=== PATIENT | male | born 1970 | race Caucasian/White ===

== ENCOUNTER 2019-05-13 15:28 | Outpatient (CLI) | payer BC, SELFPAY ==
--- NOTE | ~2019-05-13 | XR_ITS ---
XR lumbar spine 2-3V DATE: 05/13/2019 15:51 INDICATION: Low back pain for one week. History of bulging disc. TECHNIQUE: AP, lateral, coned lateral lumbosacral views COMPARISON: None FINDINGS: Diffuse idiopathic skeletal hyperostosis of the lower thoracic and upper lumbar spine. Moderate degenerative disc disease at L1-2 Moderately severe degenerative disc disease and grade 1 anterolisthesis at L4-5. Otherwise no fracture or bone destruction is detected. The lumbar pedicles are intact. The sacroiliac joints appear normal. IMPRESSION: Diffuse idiopathic skeletal hyperostosis of the thoracolumbar spine Moderate degenerative disc disease at L1-L4 5 Grade 1 anterolisthesis at L4-5 Reviewed, dictated and finalized at location B. [facility]
== END 2019-05-13 15:29 | disposition home or self-care (01) ==
PROVIDERS: PCP Family Medicine; Visit Provider Family Medicine
DX: M51.36 Other intervertebral disc degeneration, lumbar region (principal); M48.15 Ankylosing hyperostosis [Forestier], thoracolumbar region
CPT/HCPCS: 72100

== ENCOUNTER 2020-02-19 06:39 | Outpatient (NON) | payer BC, SELFPAY ==
[2020-02-19 23:55] LABS: SARS-CoV-2 RNA PCR Negative
== END 2020-02-19 06:40 ==
LOC: ANHCOVIDDT 07:13
PROVIDERS: Visit Provider Family Medicine
DX: Z20.828 Contact with and (suspected) exposure to other viral communicable diseases (principal); R05 Cough
CPT/HCPCS: 87635; C9803; U0003

== ENCOUNTER → 2021-03-23 00:58 | Outpatient (CLI) | payer BC, SELFPAY ==
[2021-03-24 02:02] LABS: SARS-CoV-2 RNA PCR Negative
== END ==
PROVIDERS: PCP Nurse Practitioner Family; Visit Provider Internal Medicine Gastroenterology
DX: Z01.812 Encounter for preprocedural laboratory examination (principal); Z20.822 Contact with and (suspected) exposure to COVID-19
CPT/HCPCS: C9803; U0003; U0005

== ENCOUNTER 2021-03-26 00:41 | Day surgery (SDC) | payer BC, SELFPAY ==
[2021-03-17 13:48] VITALS: BMI 38.4
[2021-03-26 08:12] VITALS: BP 143/97; PULSE 108; RESP 18; TEMP 36.8; O2SAT 98; BMI 38.7
--- NOTE | 2021-03-26 08:38 | WPDANESEPPF ---
Anes - Initial Pre Proc Eval Procedure: Operation Date: 03/26/21 09:30 Proposed Procedures p Screening Colonoscopy - Federico Mcqueen MD Date/Time: 03/26/21 08:38 Surgeon: Federico Mcqueen MD Pre Op Diagnosis: neoplasm screening Patient Data Age: 51 Gender: M Height: 1.85 m Weight: 133.3 kg Last Vital Signs Temp 36.8 C 03/26/21 08:12 Pulse 108 H 03/26/21 08:12 Resp 18 03/26/21 08:12 BP 143/97 H 03/26/21 08:12 Pulse Ox 98 03/26/21 08:12 Allergies Allergy/AdvReac Type Severity Reaction Status Date / Time No Known Allergies Allergy Verified 03/26/21 08:19 Home Medications Medication Instructions Recorded Confirmed Type ascorbate calcium (vitamin C) 500 500 mg PO DAILY 05/13/19 03/26/21 History mg tablet calcium carbonate 600 mg calcium 600 mg PO DAILY 05/13/19 03/26/21 History (1,500 mg) tablet etanercept 50 mg/mL (1 mL) 50 mg SUB-Q WEEKLY 05/13/19 03/26/21 History subcutaneous syringe folic acid 1 mg tablet 1 mg PO DAILY 05/13/19 03/26/21 History gabapentin 300 mg capsule 1,200 mg PO DAILY cap 05/13/19 03/26/21 History leflunomide 20 mg tablet 20 mg PO DAILY 05/13/19 03/26/21 History magnesium 30 mg tablet 30 mg PO DAILY 05/13/19 03/26/21 History omega-3 fatty acids 1,000 mg 1,000 mg PO DAILY 05/13/19 03/26/21 History capsule vitamin B complex 1 tablet PO DAILY 05/13/19 03/26/21 History vitamin E acetate 134 mg (200 200 unit PO DAILY 05/13/19 03/26/21 History unit) capsule cholecalciferol (vitamin D3) 25 50 mcg PO DAILY tablet 10/16/19 03/26/21 History mcg (1,000 unit) tablet methotrexate sodium 2.5 mg tablet 25 mg PO WEEKLY tablet 10/16/19 03/26/21 History biotin 1 mg capsule 5,000 mg PO DAILY cap 01/18/21 03/26/21 History zinc acetate 50 mg (zinc) capsule 50 mg PO DAILY 01/18/21 03/26/21 History lisinopril 20 1 tablet PO DAILY #30 tablet 02/08/21 03/26/21 Rx mg-hydrochlorothiazide 25 mg tablet levothyroxine 150 mcg tablet 150 mcg PO DAILY #90 tablet 03/08/21 03/26/21 Rx Patient hx anesthesia problems: none Family hx anesthesia problems: none Results Review: All pre-operative results and documents have been reviewed as part of the pre-operative evaluation. [facility] Past Medical History Medical History Chronic neck and back pain Deviated nasal septum h/o DNS repair 2004 Dyslipidemia Essential (primary) hypertension History of renal stone Hypothyroidism (acquired) Pre-diabetes Rheumatoid arthritis Vitamin D deficiency Surgical History Surgical History History of bilateral carpal tunnel release 2016 History of cystoscopy (~11/2020) for renal stones - 2009 History of hemorrhoidectomy 2019 History of tonsillectomy Family History Family History Father Patient's father is Family history of coronary artery disease Grandparent Carcinoma of colon Other Diabetes mellitus Social History Social History Smoking packs per day: 2 Smoking cigarettes per day: 40.0 Years smoked: 15 Smoking pack-years: 30.00 Smoking status: Former smoker Tobacco type: cigarettes Smokeless tobacco user: chewing tobacco Second hand tobacco smoke exposure: No Smoking end date: 04/10/10 Alcohol intake: never Substance use: never Substance use type: does not use Living arrangements: with family Gender identity (if verbalized by the patient): Male Spiritual care concerns: No Anes - Eval Final PreProcedure Day of Procedure 03/26/21 08:38 Patient weight: obese Heart: regular rate and rhythm Lungs: clear to auscultation Airway: Mallampati scale class II Neurological: alert and oriented Last oral intake: >/= 8 hours ASA classification: III Emergent: no Anesthetic plan: proceed Anesthesia type and monitoring: ge
--- NOTE | 2021-03-26 08:46 | WPDGICN ---
Assessment and Plan Assessment and plan (1) Encounter for screening colonoscopy: Code(s): Z12.11 - Encounter for screening for malignant neoplasm of colon Status: Acute Assessment and Plan: Patient presents for screening colonoscopy. Appears to be at average risk for colon polyps. He does have a distant history of abdominal pain most suspicious for irritable bowel syndrome. High-fiber diet advised. Further recommendations may be given after colonoscopy. GI Consult Note Consult date/time: 03/26/21 08:46 HPI: Vamsi Patterson is a 51 year old male Presents for screening colonoscopy. Patient's current weight appetite and bowel movements are normal. He denies abdominal pain. He has had no bleeding. Family history is noncontributory. Patient reports he had left-sided abdominal pain several years ago that has resolved. his bowel habits have remained normal. Review of Systems Review of Systems: All systems reviewed & are unremarkable except as noted in HPI and below PMFSH Past Medical History Medical History Chronic neck and back pain Deviated nasal septum h/o DNS repair 2004 Dyslipidemia Essential (primary) hypertension History of renal stone Hypothyroidism (acquired) Pre-diabetes Rheumatoid arthritis Vitamin D deficiency Surgical History Surgical History History of bilateral carpal tunnel release 2017 History of cystoscopy (~11/2020) for renal stones - 2009 History of hemorrhoidectomy 2019 History of tonsillectomy Family History Family History Father Patient's father is Family history of coronary artery disease Grandparent Carcinoma of colon Other Diabetes mellitus Social History Social History Smoking packs per day: 2 Smoking cigarettes per day: 40.0 Years smoked: 15 Smoking pack-years: 30.00 Smoking status: Former smoker Tobacco type: cigarettes Smokeless tobacco user: chewing tobacco Second hand tobacco smoke exposure: No Smoking end date: 04/10/10 Alcohol intake: never Substance use: never Substance use type: does not use Living arrangements: with family Gender identity (if verbalized by the patient): Male Spiritual care concerns: No Meds Home Medications and Allergies Home Medications Medication Instructions Recorded Confirmed Type ascorbate calcium (vitamin C) 500 500 mg PO DAILY 05/13/19 03/26/21 History mg tablet calcium carbonate 600 mg calcium 600 mg PO DAILY 05/13/19 03/26/21 History (1,500 mg) tablet etanercept 50 mg/mL (1 mL) 50 mg SUB-Q WEEKLY 05/13/19 03/26/21 History subcutaneous syringe folic acid 1 mg tablet 1 mg PO DAILY 05/13/19 03/26/21 History gabapentin 300 mg capsule 1,200 mg PO DAILY cap 05/13/19 03/26/21 History leflunomide 20 mg tablet 20 mg PO DAILY 05/13/19 03/26/21 History magnesium 30 mg tablet 30 mg PO DAILY 05/13/19 03/26/21 History omega-3 fatty acids 1,000 mg 1,000 mg PO DAILY 05/13/19 03/26/21 History capsule vitamin B complex 1 tablet PO DAILY 05/13/19 03/26/21 History vitamin E acetate 134 mg (200 200 unit PO DAILY 05/13/19 03/26/21 History unit) capsule cholecalciferol (vitamin D3) 25 50 mcg PO DAILY tablet 10/16/19 03/26/21 History mcg (1,000 unit) tablet methotrexate sodium 2.5 mg tablet 25 mg PO WEEKLY tablet 10/16/19 03/26/21 History biotin 1 mg capsule 5,000 mg PO DAILY cap 01/18/21 03/26/21 History zinc acetate 50 mg (zinc) capsule 50 mg PO DAILY 01/18/21 03/26/21 History lisinopril 20 1 tablet PO DAILY #30 tablet 02/08/21 03/26/21 Rx mg-hydrochlorothiazide 25 mg tablet levothyroxine 150 mcg tablet 150 mcg PO DAILY #90 tablet 03/08/21 03/26/21 Rx Allergies Allergy/AdvReac Type Severity Reaction Status Date / Time No Known Allergies Aller
[2021-03-26] MEDS: LACTATED RINGERS 1,000 ML 150 ML IV CONT (08:52)
[2021-03-26] MEDS: SIMETHICONE ORAL SUSPENSION 20 MG/0.3 ML 30 ML BOTTLE 0.6 ML IRRIGATION (09:53)
[2021-03-26 10:00] VITALS: BP 128/91; PULSE 96; RESP 22; O2SAT 97
[2021-03-26 10:10] VITALS: BP 126/72; PULSE 92; RESP 21; O2SAT 98
[2021-03-26 10:20] VITALS: BP 126/73; PULSE 76; RESP 22; O2SAT 97
== END 2021-03-26 10:33 | disposition home or self-care (01) ==
PROVIDERS: PCP Family Medicine; Visit Provider Internal Medicine Gastroenterology
PROC: 0DJD8ZZ Inspection of Lower Intestinal Tract, Via Natural or Artificial Opening Endoscopic (ICD-10-PCS; CPT 45378; principal; 2021-03-26 09:30)
DX: Z12.11 Encounter for screening for malignant neoplasm of colon (principal); K57.30 Diverticulosis of large intestine without perforation or abscess without bleeding; K64.8 Other hemorrhoids; I10 Essential (primary) hypertension; E03.9 Hypothyroidism, unspecified; E78.5 Hyperlipidemia, unspecified; E55.9 Vitamin D deficiency, unspecified; M06.9 Rheumatoid arthritis, unspecified; F17.220 Nicotine dependence, chewing tobacco, uncomplicated; E66.9 Obesity, unspecified; Z68.38 Body mass index [BMI] 38.0-38.9, adult
CPT/HCPCS: 45378; J2704; J7120

== ENCOUNTER → 2023-06-02 07:58 | Outpatient (CLI) | payer BC, SELFPAY ==
--- NOTE | ~2023-06-02 | CT_ITS ---
EXAMINATION: CT BRAIN W/O DATE: 06/02/2023 08:27 INDICATION: Headache TECHNIQUE: Computed tomography (CT) of the head was performed without intravenous contrast. The dose- length product was 726.40 mGy-cm. Automated exposure control and iterative reconstruction technique w ere employed. COMPARISON: No prior studies for comparison. FINDINGS: Normal brain parenchymal volume for age. Normal guillory-white differentiation. No acute intrac ranial hemorrhage, infarction, mass or mass effect. No ventriculomegaly or midline shift. Midline sagittal images demonstrate a normal corpus callosum, c raniovertebral junction and sella turcica. Basilar cisterns are patent. There is intracranial atheros clerosis. There is mild mucosal thickening of the ethmoid and left frontal sinuses. Mastoids are pneumatized. N o depressed skull fractures. IMPRESSION: 1. No acute intracranial abnormality. 2: Mild sinus disease. Reviewed, dictated and finalized at location A. GER ASSURANCE
--- NOTE | ~2023-06-02 | US_ITS ---
US renal BI 06/02/2023 08:14 Procedure: Realtime transabdominal ultrasound of the kidneys and bladder. Indication: Personal history of urinary stone. Comparison: Ultrasound dated 12/31/2004 Findings: Renal echotexture is normal bilaterally without hydronephrosis, contour deforming mass or r enal calculus. There is interruption of the medullary component of the right kidney, suggesting dupli cation of the renal collecting system. The right kidney measures 12 cm and left kidney measures 12.9 cm. Bladder within normal limits. 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 Otherwise, unremarkable renal ultrasoun d. Reviewed, dictated and finalized at location A. PORT SUPPORT ASSOCIATE Impression: 1: Possible duplication of the right renal collecting system. Otherwise, unrema rkable renal ultrasound.
== END ==
PROVIDERS: PCP Family Medicine; Visit Provider Nurse Practitioner Family
DX: R51.9 Headache, unspecified (principal); N23 Unspecified renal colic; R35.0 Frequency of micturition; Z87.442 Personal history of urinary calculi
CPT/HCPCS: 70450; 76775

== ENCOUNTER 2024-12-23 16:22 | Outpatient (CLI) | payer BC, SELFPAY ==
--- OUTSIDE RECORDS SUMMARY | 2024-10-18 05:20 | XMS_ITS ---
Author Organization [facility] Address [address] [place], [place] [id number] Care Team Providers Care Practice Consultant Name Role Phone SEBASTIAN STONER, [facility] Primary Care Provider Unavailable Angelica Ramírez Unavailable [phone] Akosua Cagle Unavailable [phone] Encounters Encounter Location Date Provider Diagnosis [facility] [address], [address] [place], [place] [id number] 10/18/2024 Akosua Cagle PLAN OF TREATMENT Next Appt Details Provider Name:Angelica charles, 05/02/2025 10:40:00 AM, [address], [address], [place], [place], [id number],
--- OUTSIDE RECORDS SUMMARY | 2024-10-25 05:40 | XMS_ITS ---
Author Organization [facility] Address [address] [place], [place] [id number] Care Team Providers Care Insolvency Practitioner Name Role Phone [facility]BASTIAN STONER, [facility] Primary Care Provider Unavailable Angelica Ramírez Unavailable [phone] Akosua Cagle Unavailable [phone] ALLERGIES No Known Allergies RESULTS Component Value Reference Range Notes CYCLIC CITRULLINATED PEPTIDE (CCP) AB (IGG) Reviewed date:11/08/2024 09:03:23 AM Interpretation: Performing Lab:Mari FULLER-[id number] Judy [id number] Ayala Hendrix MD Notes/Report: NON-FASTING; NON-FASTING; NON-FASTING; NON-FASTING; NON-FAST CYCLIC CITRULLINATED PEPTIDE (CCP) AB (IGG) <16 Reference Range Negative: <20 Weak Positive: 20-39 Moderate Positive: 40-59 Strong Positive: >59 CREATININE Reviewed date:11/08/2024 09:03:23 AM Interpretation: Performing Lab:DYLLAN ChimerosDulce SalasCezal[address] Administration Lisa Alba [id number] Ayala Hendrix Notes/Report: NON-FASTING; NON-FASTING; NON-FASTING; NON-FASTING; NON-FAST CREATININE 0.81 0.70-1.30 mg/dL The above test was performed; however, the specimen was lipemic. EGFR 105 > OR = 60 mL/min/1.73m2 AST Reviewed date:11/08/2024 09:03:23 AM Interpretation: Performing Lab:[place] [address] Administration Lisa Alba [address] Notes/Report: NON-FASTING; NON-FASTING; NON-FASTING; NON-FASTING; NON-FAST AST 36 10-35 U/L ALT Reviewed date:11/08/2024 09:03:23 AM Interpretation: Performing Lab:[place] [address] Administration Lisa Alba [id number] [facility] Notes/Report: NON-FASTING; NON-FASTING; NON-FASTING; NON-FASTING; NON-FAST ALT 67 9-46 U/L SED RATE BY MODIFIED WESTERG JUNO Reviewed date:11/08/2024 09:03:23 AM Interpretation: Performing Lab:Mari MIJARES [facility] [place] [address] Administration Lisa Alba [address] Notes/Report: NON-FASTING; NON-FASTING; NON-FASTING; NON-FASTING; NON-FAST SED RATE BY MODIFIED WESTERGREN 2 < OR = 20 mm/h CBC (INCLUDES DIFF/PLT) Reviewed date:11/08/2024 09:03:23 AM Interpretation: Performing Lab:[place] [address] Administration Lisa Alba [address] Notes/Report: NON-FASTING; NON-FASTING; NON-FASTING; NON-FASTING; NON-FAST WHITE BLOOD CELL COUNT 10.9 3.8-10.8 Thousand/ uL RED BLOOD CELL COUNT 4.81 4.20-5.80 Million/uL HEMOGLOBIN 16.5 13.2-17.1 g/dL HEMATOCRIT 49.9 38.5-50.0 % MCV 103.7 80.0-100.0 fL MCH 34.3 27.0-33.0 pg MCHC 33.1 32.0-36.0 g/dL For adults, a slight decrease in the calculated MCHC value (in the range of 30 to 32 g/dL) is most likely not clinically significant; however, it should be interpreted with caution in correlation with other red cell parameters and the patient's clinical condition. RDW 12.2 11.0-15.0 % PLATELET COUNT 253 140-400 Thousand/uL MPV 12.0 7.5-12.5 fL ABSOLUTE NEUTROPHILS 6268 8088-5125 cells/uL ABSOLUTE LYMPHOCYTES 2616 850-3900 cells/uL ABSOLUTE MONOCYTES 1057 200-950 cells/uL ABSOLUTE EOSINOPHILS 839 15-500 cells/uL ABSOLUTE BASOPHILS 120 0-200 cells/uL NEUTROPHILS 57.5 LYMPHOCYTES 24.0 MONOCYTES 9.7 EOSINOPHILS 7.7 BASOPHILS 1.1 RHEUMATOID FACTOR Reviewed date:11/08/2024 09:03:23 AM Interpretation: Performing Lab:JONNY Chimeros-[id number] Edison [id number] Ayala Hendrix MD Notes/Report: NON-FASTING; NON-FASTING; NON-FASTING; NON-FASTING; NON-FAST RHEUMATOID FACTOR <10 <14 IU/mL C-REACTIVE PROTEIN Reviewed date:11/08/2024 09:03:23 AM Interpretation: Performing Lab:[facility] Administration Lisa Alba [id number] Ayala Hendrix Notes/Report: NON-FASTING; NON-FASTING; NON-FASTING; NON-FASTING; NON-FAST C-REACTIVE PROTEIN <5.0 <8.0 mg/L MEDICATIONS Medication SIG (Take, Route, Frequency, Duration) Notes Start Date End Date Status folic acid 1 mg 1 tab(s) orally once a day Active Lisinopril/HCTZ 20/25mg 1 tab once a day Active gabapentin 300 mg 2 tab(s) orally once a day Active levothyroxine 137 mcg (0.137 mg) 1 tab(s) orally once a day Active leflunomide 20 mg 1 tab(s) orally once a day Active naproxen 500 mg 1 tab(s) orally 2 ti mes a day Active VITAL SIGNS BMI 42.61 kg/m2 10/25/2024 Blood pressure systolic 140 mm Hg 10/26/19 25 Blood pressure diastolic 90 mm Hg 025 Heart Rate 90 /min 10/25/2024 Height 73 in 10/25/2024 Weight 323 lbs 10/25/2024 Encounters Encounter Location Date Provider [facility] [address] [place], [place] [id number] 10/25/2024 Akosua Cagle DISH (diffuse idiopathic skeletal hyperostosis) M48.10 ; Rheumatoid arthritis, involving unspecified site, unspecified rheumatoid factor presence M06.9 and Other terminal system operator (current) drug therapy Z79.899 ASSESSMENTS Encounter Date Diagnosis Assessment Notes Treatment Notes Treatment Clinical Notes Section Notes 10/25/2024 DISH (diffuse idiopathic skeletal hyperostosis) (ICD-10 - M48.10) Hx of Seronegative RA diagnosed by Dr. Sung-failed Lauren. Stopped Orencia and MTX (due to mildly elevated ALT). Fairly stable with LEF 20mg. Requesting to stop. Advised that we would re-evaluate serologies today. Discussed risk of stopping meds. Continue Naproxen and Gabapentin for DISH. F/u scheduled. 10/25/2024 Rheumatoid arthritis, involving unspecified site, unspecified rheumatoid factor presence (ICD-10 - M06.9) Hx of Seronegative RA diagnosed by Dr. Sung-failed Bienvenidobreyanria. Stopped Orencia and MTX (due to mildly elevated ALT). Fairly stable with LEF 20mg. Requesting to stop. Advised that we would re-evaluate serologies today. Discussed risk of stopping meds. Continue Naproxen and Gabapentin for DISH. F/u scheduled. 10/25/2024 Other penitentiary (current) drug therapy (ICD-10 - Z79.899) Hx of Seronegative RA diagnosed by Dr. Sung-failed Bienvenidobrel. Stopped Orencia and MTX (due to mildly elevated ALT). Fairly stable with LEF 20mg. Requesting to stop. Advised that we would re-evaluate serologies today. Discussed risk of stopping meds. Continue Naproxen and Gabapentin for DISH. F/u scheduled. PLAN OF TREATMENT Medication Medication Name Sig Start Date Stop Date Notes folic acid 1 mg 1 tab(s) orally once a day Lisinopril/HCTZ 20/25mg 1 tab once a day gabapentin 300 mg 2 tab(s) orally once a day levothyroxine 137 mcg (0.137 mg) 1 tab(s ) orally once a day leflunomide 20 mg 1 tab(s) orally once a day naproxen 500 mg 1 tab(s) orally 2 ti mes a day Pending Test Test Name Order Date AST (SGOT) 10/25/2024 Creatinine, Serum 10/25/2024 ALT (SGPT) 10/25/2024 CBC With Differential/Platelet Sed Rate - Westergren 10/25/2024 Rheumatoid Arthritis Factor 10/25/2024 C-Reactive Protein, Quant 10/25/2024 CCP IgG Antibodies 10/25/2024 Next Appt Details Follow Up: 4 Months, Reason: Provider Name:Angelica charles, 05/02/2025 10:40:00 AM, [address], [address], [place], [place], [id number], Progress Notes * Examination Category Sub-Category Detail Notes Category Not es Rheumatology Cervical Spine normal range of motion Lumbar spine: normal forward and l ateral bending Thoracic Spine: normal Sacroiliac: normal Fibromyalgia Tender Points: none General Constitutional: obese, No acute distress HEENT: PERRLA, Neck supple, Normal sclerae and conjunctivae Abdomen: soft, no organomegal y or masses /Rectal: not done Skin: No cutaneous lesions . No subcutaneous nodules noted in the 4 extremities Neurological: No focal neurologica l findings Heme/Lymphatic: No cervical, axillar y, or inguinal adenopathy Psych: Alert, oriented x 3, Normal affect Musculoskeletal: Normal strength. No muscle atrophy Joint Exam Shoulders No swelling. No tenderness. NROM. Elbows No swelling. No tend erness. NROM., No instability or deformity. Wrists No swelling. No tend erness. NROM., No instability or deformity. Hips No tenderness, NROM. , No instability or deformity. Knees No swelling, no tend erness, NROM., No instability or deformity. Ankles No swelling, no tend erness, NROM., No instability or deformity. All IPs No swelling, no tend erness, NROM, no deformity unless noted below. All MCPs bilateral fullness All PIPs No swelling, no tend erness, no deformity unless noted below. All DIPs No swelling, no tend erness, no deformity unless noted below. All MTPs No swelling, no tend erness, NROM, no deformity unless noted below. History and Physical Notes * HPI (History of Present Illness) Category Sub-Category Detail Notes Category Not es Rheumatology Joint pain Doing ok-hasn't had Orencia since Mar. states he requested a refill for it, but needed a visit first. He tells me that he is doing ok without it. Also, stopped MTX as he worried about his mildly elevated LFTs from June. He remains on LEF 20mg. Joint pain mostly manageable with Naproxen and Gabapentin. Feels better when he avoids gluten. No fever/infections. Does have DISH/DJD Joint swelling Fever Dyspnea/SOB Cough Lymphadenopathy Chills fatigue morning stiffness 1 hour myalgias infection dry eyes dry mouth Raynaud's/ dicoloration of fingers muscle weakness digital ulcerations rash dysphagia photosensitivity Back pain History of gout Headaches Psoriasis Oral sores Iritis, conjuctivitis, uveiitis Numbness or tingling Family History of Rheumatic Disease Alopecia chest pain Physical Examination Category Sub-Category Detail Notes Section Note s MDHAQ Summary Function (0-10):: 1.0 Pain (0-10):: 1 Patient Global Assessment of Disease Activity (0 -10):: 0 RAPID3 Score (0-30):: 2.3 Physician Global Assessment of Disease Activity (0-10):: 2 Prognosis Good w/tx Erosive Damage No
--- OUTSIDE RECORDS SUMMARY | 2024-11-07 05:29 | XMS_ITS ---
Author Organization [facility] Address [address] [place], [place] [phone] Care Team Providers Care Candy Bar Attendant Name Role Phone SEBASTIAN STONER, [facility] Primary Care Provider Unavailable Angelica Ramírez Unavailable [phone] Encounters Encounter Location Date Provider Diagnosis [facility] [address], [address] [place], [place] [id number] 11/07/2024 Angelica Ramírez Medication monitoring encounter Z51.81 and Rheumatoid arthritis, involving unspecified site, unspecified rheumatoid factor presence M06.9 ASSESSMENTS Encounter Date Diagnosis Assessment Notes Treatment Notes Treatment Clinical Notes Section Notes 11/07/2024 Medication monitoring encounter (ICD-10 - Z51.81) 11/07/2024 Rheumatoid arthritis, involving unspecified site, unspecified rheumatoid factor presence (ICD-10 - M06.9) PLAN OF TREATMENT Pending Test Test Name Order Date CBC With Differential/Platelet Future Test Test Name Order Date AST (SGOT) 11/21/2024 ALT (SGPT) 11/21/2024 Next Appt Details Provider Name:Angelica Berg orf, 05/02/2025 10:40:00 AM, [address], [address], [place], [place], [id number],
--- OUTSIDE RECORDS SUMMARY | 2024-12-04 04:37 | XMS_ITS ---
Author Organization [facility] Address [address] [place], [place] [phone] Care Team Providers Care Rfid Manager Name Role Phone SEBASTIAN STONER, [facility] Primary Care Provider Unavailable Angelica Ramírez Unavailable [phone] REASON FOR VISIT 90 day scripts Encounters Encounter Location Date Provider Diagnosis [facility] [address], [address] [place], [place] [phone] 12/04/2024 Angelica Ramírez PLAN OF TREATMENT Next Appt Details Provider Name:Angelica charles, 05/02/2025 10:40:00 AM, [address], [address], [place], [place], [id number],
--- OUTSIDE RECORDS SUMMARY | 2024-12-05 05:13 | XMS_ITS ---
Author Organization [facility] Address [address] [place], [place] [id number] Care Team Providers Care Laborer Concrete Plant Name Role Phone SEBASTIAN STONER, [facility] Primary Care Provider Unavailable Angelica Ramírez Unavailable [phone] Encounters Encounter Location Date Provider Diagnosis [facility] [address], [address] [place], [place] [id number] 12/05/2024 Angelica Ramírez PLAN OF TREATMENT Next Appt Details Provider Name:Angelica charles, 05/02/2025 10:40:00 AM, [address], [address], [place], [place], [phone],
[2024-12-23 17:14] LABS: Alanine Aminotransferase 76 U/L (6-50); Albumin Level 4.2 g/dL (3.5-5.1); Alkaline Phosphatase 98 U/L (38-126); Anion Gap 8 mmol/L (4-12); Aspartate Amino Transferase 55 U/L (17-59); Bilirubin,Total 0.5 mg/dL (0.2-1.3); Blood Urea Nitrogen 14 mg/dL (9-20); Calcium 9.1 mg/dL (8.4-10.2); Carbon Dioxide 24 mmol/L (22-30); Chloride 103 mmol/L (98-107); Estimated Glomerular Filt Rate > 60; Glucose 115 mg/dL (65-110); Potassium 4.1 mmol/L (3.4-5.0); Sodium 135 mmol/L (137-145); Total Protein 7.4 g/dL (6.3-8.2)
[2024-12-23 17:49] LABS: Hepatitis B Surface Antigen Negative (Negative)
[2024-12-23 17:55] LABS: HAV RESULT Negative (Negative); Hepatitis B Core IgM Result Negative (Negative)
--- OUTSIDE RECORDS SUMMARY | 2024-12-23 18:54 | XMS_ITS | Patient Health Record ---
Author Organization [facility] Address [address] [place], [place] [id number] Care Team Providers Care Operating Engineer Name Role Phone SEBASTIAN STONER, [facility] Primary Care Provider Unavailable Angelica Ramírez Unavailable [phone] Akosua Cagle Unavailable [phone] ALLERGIES No Known Allergies RESULTS Component Value Reference Range Notes CREATININE Reviewed date:06/09/2024 11:10:09 AM Interpretation: Performing Lab:Mari FULLER-[id number] Jaylan Frazier, [id number] Ayala Hendrix MD Notes/Report: NON-FASTING; NON-FASTING; NON-FASTING; NON-FASTING FASTING:YES FASTING: YES CREATININE 0.89 0.70-1.30 mg/dL EGFR 102 > OR = 60 mL/min/1.73m2 AST Reviewed date:06/09/2024 11:10:05 AM Interpretation: Performing Lab:Mari FULLER-[id number] [id number] Ayala Hendrix MD Notes/Report: NON-FASTING; NON-FASTING; NON-FASTING; NON-FASTING FASTING:YES FASTING: YES AST 28 10-35 U/L ALT Reviewed date:06/10/2024 07:19:47 AM Interpretation: Performing Lab:Mari FULLERa10101 Jaylan Frazier, [id number] Ayala Hendrix MD Notes/Report: NON-FASTING; NON-FASTING; NON-FASTING; NON-FASTING FASTING:YES FASTING: YES ALT 53 9-46 U/L CBC (INCLUDES DIFF/PLT) Reviewed date:06/09/2024 11:14:00 AM Interpretation: Performing Lab:aMri FULLERa10101 Jaylan Frazier, [id number] Ayala Hendrix MD Notes/Report: NON-FASTING; NON-FASTING; NON-FASTING; NON-FASTING FASTING:YES FASTING: YES WHITE BLOOD CELL COUNT 7.8 3.8-10.8 Thousand/ uL RED BLOOD CELL COUNT 4.25 4.20-5.80 Million/uL HEMOGLOBIN 14.8 13.2-17.1 g/dL HEMATOCRIT 43.5 38.5-50.0 % MCV 102.4 80.0-100.0 fL MCH 34.8 27.0-33.0 pg MCHC 34.0 32.0-36.0 g/dL For adults, a slight decrease in the calculated MCHC value (in the range of 30 to 32 g/dL) is most likely not clinically significant; however, it should be interpreted with caution in correlation with other red cell parameters and the patient's clinical condition. RDW 12.8 11.0-15.0 % PLATELET COUNT 242 140-400 Thousand/uL MPV 11.4 7.5-12.5 fL ABSOLUTE NEUTROPHILS 4157 0305-3675 cells/uL ABSOLUTE LYMPHOCYTES 2231 850-3900 cells/uL ABSOLUTE MONOCYTES 936 200-950 cells/uL ABSOLUTE EOSINOPHILS 406 15-500 cells/uL ABSOLUTE BASOPHILS 70 0-200 cells/uL NEUTROPHILS 53.3 LYMPHOCYTES 28.6 MONOCYTES 12.0 EOSINOPHILS 5.2 BASOPHILS 0.9 CYCLIC CITRULLINATED PEPTIDE (CCP) AB (IGG) Reviewed date:11/08/2024 09:03:23 AM Interpretation: Performing Lab:Mari FULLER-Kfcgro49909 Jaylan Frazier, [id number] Ayala Hendrix MD Notes/Report: NON-FASTING; NON-FASTING; NON-FASTING; NON-FASTING; NON-FAST CYCLIC CITRULLINATED PEPTIDE (CCP) AB (IGG) <16 Reference Range Negative: <20 Weak Positive: 20-39 Moderate Positive: 40-59 Strong Positive: >59 CREATININE Reviewed date:11/08/2024 09:03:23 AM Interpretation: Performing Lab:Mari [place] [address] Administration Lisa Alba [address] Notes/Report: NON-FASTING; NON-FASTING; NON-FASTING; NON-FASTING; NON-FAST CREATININE 0.81 0.70-1.30 mg/dL The above test was performed; however, the specimen was lipemic. EGFR 105 > OR = 60 mL/min/1.73m2 AST Reviewed date:11/08/2024 09:03:23 AM Interpretation: Performing Lab:DYLLAN [facility]parc SystemsSarah [place] [address] Administration Lisa Alba [id number] [facility] Notes/Report: NON-FASTING; NON-FASTING; NON-FASTING; NON-FASTING; NON-FAST AST 36 10-35 U/L ALT Reviewed date:11/08/2024 09:03:23 AM Interpretation: Performing Lab:DYLLAN [facility] [place] [address] Administration Lisa Alba [id number] [facility] Notes/Report: NON-FASTING; NON-FASTING; NON-FASTING; NON-FASTING; NON-FAST ALT 67 9-46 U/L SED RATE BY MODIFIED WESTERG JUNO Reviewed date:11/08/2024 09:03:23 AM Interpretation: Performing Lab:DYLLAN [facility] [place] [address] Administration Lisa Alba [address] Notes/Report: NON-FASTING; NON-FASTING; NON-FASTING; NON-FASTING; NON-FAST SED RATE BY MODIFIED WESTERGREN 2 < OR = 20 mm/h CBC (INCLUDES DIFF/PLT) Reviewed date:11/08/2024 09:03:23 AM Interpretation: Performing Lab:DYLLAN [facility] [place] [address] Administration Lisa Alba [address] Notes/Report: NON-FASTING; NON-FASTING; NON-FASTING; NON-FASTING; NON-FAST [...] MPV 12.0 7.5-12.5 fL ABSOLUTE NEUTROPHILS 6268 9723-3044 cells/uL ABSOLUTE LYMPHOCYTES 2616 850-3900 cells/uL ABSOLUTE MONOCYTES 1057 200-950 cells/uL ABSOLUTE EOSINOPHILS 839 15-500 cells/uL ABSOLUTE BASOPHILS 120 0-200 cells/uL NEUTROPHILS 57.5 LYMPHOCYTES 24.0 MONOCYTES 9.7 EOSINOPHILS 7.7 BASOPHILS 1.1 RHEUMATOID FACTOR Reviewed date:11/08/2024 09:03:23 AM Interpretation: Performing Lab:Mari FULLER-[id number] Judy [id number] ArmidaAnaid Hendrix MD Notes/Report: NON-FASTING; NON-FASTING; NON-FASTING; NON-FASTING; NON-FAST RHEUMATOID FACTOR <10 <14 IU/mL C-REACTIVE PROTEIN Reviewed date:11/08/2024 09:03:23 AM Interpretation: Performing Lab:Mari MIJARES [facility] [address] Administration Lisa Alba [place] [address] [facility] Lola Hendrix Notes/Report: NON-FASTING; NON-FASTING; NON-FASTING; NON-FASTING; NON-FAST C-REACTIVE PROTEIN <5.0 <8.0 mg/L AST Reviewed date:2024 10:14:06 AM Interpretation: Performing Lab:Mari MIJARES [facility] [address] Administration Lisa Alba [place] [address] Ayala Hendrix Notes/Report: NON-FASTING; NON-FASTING FASTING:NO FASTING: NO AST 44 10-35 U/L ALT Reviewed date:12/05/2024 10:13:59 AM Interpretation: Performing Lab:Mari MIJARES [place] [address] Administration Lisa Alba [place] [address] [facility] Lola Hendrix Notes/Report: NON-FASTING; NON-FASTING FASTING:NO FASTING: NO ALT 84 9-46 U/L REASON FOR REFERRAL No Information MEDICATIONS Medication SIG (Take, Route, Frequency, Duration) Notes Start Date End Date Status folic acid 1 mg 1 tab(s) orally once a day Active Lisinopril/HCTZ 20/25mg 1 tab once a day Active levothyroxine 137 mcg (0.137 mg) 1 tab(s) orally once a day Active leflunomide 20 mg 1 tab(s) orally once a day Active naproxen 500 mg 1 tab(s) orally 2 ti mes a day Active gabapentin 300 mg 2 tab(s) orally once a day for 90 days Active PROBLEMS Problem Type ICD Code Onset Dates Problem Status W/U Status Risk SNOMED Code Notes Problem Other ferry terminal agent (current) drug therapy (Z79.899) Active confirmed 342434016 Problem Essential (primary) hypertension (I10) Active confirmed 15280383 Problem Neck pain (M54.2) Active confirmed 46702986 Problem Rheumatoid arthritis without rheumatoid factor, multiple sites (M06.09) Active confirmed 250355436 Problem DISH (diffuse idiopathic skeletal hyperostosis) (M48.10) Active confirmed 65865607 Problem Medication monitoring encounter (Z51.81) Active confirmed 544339628 Problem Encounter for screening for respiratory tuberculosis (Z11.1) Active confirmed Tuberculosis screening (808422462) Problem Rheumatoid arthritis, involving unspecified site, unspecified rheumatoid factor presence (M06.9) Active confirmed 53345933 Problem Fatigue, unspecified type (R53.83) Active confirmed 51635617 Problem Encounter for Screening Hepatitis Panel (Z11.59) Active confirmed Viral screening (238884477) VITAL SIGNS Heart Rate 90 /min 10/25/2024 Blood pressure diastolic 90 mm Hg 10/25/2024 Height 73 in 10/25/2024 Blood pressure systolic 140 mm Hg 10/25/2024 Weight 323 lbs 10/25/2024 BMI 42.61 kg/m2 10/25/2024 Encounters Encounter Location Date [facility] [address], [address] [place], [place] [id number] 04/12/2024 Angelica Ramírez Rheumatoid arthritis, involving unspecified site, unspecified rheumatoid factor presence M06.9 ; Other fpc (current) drug therapy Z79.899 ; DISH (diffuse idiopathic skeletal hyperostosis) M48.10 and Encounter for screening for respiratory tuberculosis Z11.1 [facility], [address] [id number] 10/18/2024 Akosua Cagle [facility], [address] [id number] 10/25/2024 Akosua Cagle DISH (diffuse idiopathic skeletal hyperostosis) M48.10 ; Rheumatoid arthritis, involving unspecified site, unspecified rheumatoid factor presence M06.9 and Other fpc (current) drug therapy Z79.899 [facility] [address] [place] [address], [address] [id number] 03/01/2024 Angelicakarina Ramírez [facility] [address] [place] [address], [address] [id number] 06/10/2024 Angelicakarina Ramírez Other ferry terminal agent (current) drug therapy Z79.899 [facility] [address] [place] [id number] 06/11/2024 Angelicakarina Ramírez [facility] [address] [place] [address], [address] [id number] 06/13/2024 Angelicakarina Ramírez [facility] [address] [place] [address], [address] [id number] 07/09/2024 Angelicakarina Ramírez [facility] [address] [place] [address], [address] [id number] 08/29/2024 Angelicakarina Ramírez [facility] [address] [place] [id number] 11/07/2024 Angelicakarina Ramírez Medication monitoring encounter Z51.81 and Rheumatoid arthritis, involving unspecified site, unspecified rheumatoid factor presence M06.9 [facility] [address] [place] [address], [address] [id number] 12/04/2024 Angelicakarina Ramírez [facility] [address] [place] [address], [address] [id number] 12/05/2024 Angelicakarina Ramírez ASSESSMENTS Encounter Date Diagnosis Assessment Notes Treatment Notes Treatment Clinical Notes Section Notes 04/12/2024 Other fpc (current) drug therapy (ICD-10 - Z79.899) RA- stable on MTX, LEF, and Orencia. Continue current therapy. Check labs. QFN regularly. Naproxen for DISH. Encouraged low impact exercise. F/u scheduled. 04/12/2024 Rheumatoid arthritis, involving unspecified site, unspecified rheumatoid factor presence (ICD-10 - M06.9) RA- stable on MTX, LEF, and Orencia. Continue current therapy. Check labs. QFN regularly. Naproxen for DISH. Encouraged low impact exercise. F/u scheduled. 10/25/2024 DISH (diffuse idiopathic skeletal hyperostosis) (ICD-10 - M48.10) Hx of Seronegative RA diagnosed by Dr. Sung-failed Enbrel. Stopped Orencia and MTX (due to mildly elevated ALT). Fairly stable with LEF 20mg. Requesting to stop. Advised that we would re-evaluate serologies today. Discussed risk of stopping meds. Continue Naproxen and Gabapentin for DISH. F/u scheduled. 10/25/2024 Rheumatoid arthritis, involving unspecified site, unspecified rheumatoid factor presence (ICD-10 - M06.9) Hx of Seronegative RA diagnosed by Dr. Sung-failed Enbrel. Stopped Orencia and MTX (due to mildly elevated ALT). Fairly stable with LEF 20mg. Requesting to stop. Advised that we would re-evaluate serologies today. Discussed risk of stopping meds. Continue Naproxen and Gabapentin for DISH. F/u scheduled. 06/10/2024 Other fpc (current) drug therapy (ICD-10 - Z79.899) 11/07/2024 Medication monitoring encounter (ICD-10 - Z51.81) 04/12/2024 DISH (diffuse idiopathic skeletal hyperostosis) (ICD-10 - M48.10) RA- stable on MTX, LEF, and Orencia. Continue current therapy. Check labs. QFN regularly. Naproxen for DISH. Encouraged low impact exercise. F/u scheduled. 10/25/2024 Other fpc (current) drug therapy (ICD-10 - Z79.899) Hx of Seronegative RA diagnosed by Dr. Sung-failed Enbrel. Stopped Orencia and MTX (due to mildly elevated ALT). Fairly stable with LEF 20mg. Requesting to stop. Advised that we would re-evaluate serologies today. Discussed risk of stopping meds. Continue Naproxen and Gabapentin for DISH. F/u scheduled. 11/07/2024 Rheumatoid arthritis, involving unspecified site, unspecified rheumatoid factor presence (ICD-10 - M06.9) 04/12/2024 Encounter for screening for respiratory tuberculosis (ICD-10 - Z11.1) RA- stable on MTX, LEF, and Orencia. Continue current therapy. Check labs. QFN regularly. Naproxen for DISH. Encouraged low impact exercise. F/u scheduled. PLAN OF TREATMENT Pending Test Test Name Order Date AST (SGOT) 10/20/2022 AST (SGOT) 04/12/2024 AST (SGOT) 10/25/2024 Creatinine, Serum 10/20/2022 Creatinine, Serum 04/12/2024 Creatinine, Serum 10/25/2024 ALT (SGPT) 10/20/2022 ALT (SGPT) 04/12/2024 ALT (SGPT) 10/25/2024 T4 Free 06/12/2023 TSH 06/12/2023 CBC With Differential/Platelet 5 CBC With Differential/Platelet 5 CBC With Differential/Platelet 5 CBC With Differential/Platelet 3 Sed Rate - Westergren 10/25/2024 Rheumatoid Arthritis Factor 10/25/2024 C-Reactive Protein, Quant 10/25/2024 CCP IgG Antibodies 10/25/2024 Hepatitis Panel (4) 05/28/2021 T3, FREE 06/12/2023 X ray : Hand left- outside order 020 X ray : Hand right- outside order 2019 Lab slip given 05/28/2021 -Xray slip given 07/26/2019 QUANTIFERON(R)-TB GOLD PLUS, 1 TUBE 06/09 Future Test Test Name Order Date AST (SGOT) 09/20/2021 ALT (SGPT) 09/20/2021 Lab slip given 09/20/2021 AST (SGOT) 03/05/2022 Creatinine, Serum 03/05/2022 ALT (SGPT) 03/05/2022 CBC With Differential/Platelet AST (SGOT) 08/10/2022 Creatinine, Serum 08/10/2022 ALT (SGPT) 08/10/2022 CBC With Differential/Platelet 3 AST (SGOT) 04/07/2023 Creatinine, Serum 04/07/2023 ALT (SGPT) 04/07/2023 CBC With Differential/Platelet 3 Lab slip given 04/07/2023 AST (SGOT) 01/09/2024 Creatinine, Serum 01/09/2024 ALT (SGPT) 01/09/2024 CBC With Differential/Platelet 4 AST (SGOT) 07/01/2024 ALT (SGPT) 07/01/2024 AST (SGOT) 07/11/2024 Creatinine, Serum 07/11/2024 ALT (SGPT) 07/11/2024 CBC With Differential/Platelet 5 QUANTIFERON(R)-TB GOLD PLUS, 1 TUBE 04/0 06/2024 AST (SGOT) 11/21/2024 ALT (SGPT) 11/21/2024 Next Appt Details Provider Name:Angelica charles, 05/02/2025 10:40:00 AM, [address] [facility], [address], [place], [place], [id number], Insurance Providers Payer Name Payer Address Payer Phone Subscriber Number Group Number Insured Name Patient Relationship to Insured Coverage Start Date Coverage End Date [facility] [address] [place] [address] [id number] Vamsi Patterson Self - patient is the insured 9 MEDICAL (GENERAL) HISTORY Medical History History ICD Code swollen glands sinus problems dizziness thyroid disease asthma Kidney stones high blood pressure hemorrhoids Surgical History Surgery Date(Month/Year) tonsillectomy 1974 kidney stones removal 2007 carpal tunnel surgery 04/2018 hernia removal 12/2018 Hospitalization History Reason Date(Month/Year) 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
--- OUTSIDE RECORDS SUMMARY | 2024-12-23 18:54 | XMS_ITS | Clinical Summary ---
Author Organization [facility] Address [address] [place] [address] Care Team Providers Care Wireline Operator Name Role Phone Lina Ritchie MD Primary Care Provider Allergies No known active allergies Medications folic acid 1 MG tablet Take 1 mg by mouth daily. Active gabapentin 300 MG capsule Take 600 mg by mouth nightly at bedtime. Active levothyroxine 150 MCG tablet Take 150 mcg by mouth every morning. Active lisinopril-hydr ochlorothiazide 20-25 MG tablet Take 1 tablet by mouth daily. 3 8 Active methotrexate 2.5 MG tablet Take 25 mg by mouth every 7 days. On Sundays 3 8 Active ENBREL SURECLICK 50 MG/ML Solution Auto-injector injection 1 Active leflunomide 20 MG tablet Take 20 mg by mouth daily. 1 Active HYDROcodone-darlene taminophen (NORCO) 5-325 MG tabletIndicatio ns:Acute Pain < 7 Day Supply Take 1-2 tablets by mouth every 6 (six) hours as needed for Pain. Indications: Acute Pain < 7 Day Supply 16 tablet 2 Active CAM BOOT WEATHER COVER, DME, 1 Device by Does not apply route daily. Right foot for metatarsal fracture 1 Device 2 Active artificial tears (LUBRIFRESH PM) 83-15 % ophthalmic ointment Place into the right eye nightly at bedtime. 3.5 g 4 Active dextran 70-hypromellose (ARTIFICIAL TEARS) 0.1-0.3 % ophthalmic solution Place 1 drop into the right eye 4 (four) times daily. 15 mL Active Family History Medical History Relation Comments Arthritis Maternal Grandfather Diabetes Maternal Grandfather Arthritis Maternal Grandmother Diabetes Maternal Grandmother Arthritis Paternal Grandfather Diabetes Paternal Grandfather Arthritis Paternal Grandmother Diabetes Paternal Grandmother Diabetes Sister Relation Status Comments Maternal Grandfather Maternal Grandmother Paternal Grandfather Paternal Grandmother Sister Social History Tobacco Use Types Packs/Day Years Used Date Smoking Tobacco: Never Smokeless Tobacco: Current Chew Alcohol Use Standard Drinks/Week Comments No 0 (1 standard drink = 0.6 oz pur e alcohol) AUDIT-C Answer Date Recorded Frequency of Alcohol Consumption Never 01/18/2018 Average Number of Drinks Not on file 018 Frequency of Binge Drinking Not on file 01/08 Sex and Gender Information Value Date Recorded Sex Assigned at Not on file Legal Sex Male 8:12 AM CDT Gender Identity Not on file Sexual Orientation Not on file Last Filed Vital Signs Vital Sign Reading Time Taken Comments Blood Pressure 149/89 02/19/2024 9:24 AM BELT TENDER Pulse 81 02/19/2024 7:26 AM BELT TENDER Temperature 36.1 C (97 F) 02/19/2024 7:26 AM BELT TENDER Respiratory Rate 17 02/19/2024 7:26 AM BELT TENDER Oxygen Saturation 98% 02/19/2024 7:26 AM BELT TENDER Inhaled Oxygen Concentration - - Weight 144.9 kg (319 lb 7.1 oz) 02/19/2024 7:26 AM BELT TENDER Height 185.4 cm (6' 1) 02/19/2024 7:26 AM BELT TENDER Body Mass Index 42.15 02/19/2024 7:26 AM BELT TENDER Plan of Treatment Upcoming Encounters Date Type Department Care Team (Late st Contact Info) Description 01/06/2025 3:45 PM CDT Appointment [facility] [address] [address] Lina Ritchie MD [address] [facility] [address] [place] [address] Health Maintenance Due Date Last Done Comments Colorectal Cancer Screening Colonoscopy (10 Years) 1970 Annual Physical 1973 Hepatitis C 1988 DTaP, Tdap and Td Vaccines ( 1 - Tdap) 1989 Hepatitis B Vaccines (1 of 3 - 19+ 3-dose series) 1989 Pneumococcal Vaccine: 50+ Years (1 of 1 - PCV) 2020 Zoster Vaccines (1 of 2) 2020 COVID-19 Vaccine (3 - 2024-2 6 season) 2024 03/19/2021, 02/15/2021 Meningococcal B Vaccine Aged Out No l onger eligible based on patient's age to complete this topic Meningococcal Vaccine Aged Out No elton rogelio eligible based on patient's age to complete this topic RSV Immunizations Under 20 Months Aged Out No longer eligible b ased on patient's age to complete this topic [place] [address] [place] [address] Care Teams Wireline Operator Relationship Specialty Start Date End Date Lina Ritchie MD PCP - General FAMILY PRACTICE 01/18/18
--- OUTSIDE RECORDS SUMMARY | 2024-12-23 18:55 | XMS_ITS | Clinical Summary ---
Author Organization [facility] Address [address] [place] [address] Care Team Providers Care Silverware Cleaner Name Role Phone Unknown, Notinfile Primary Care Provider Unavail able Lina Ritchie MD Unavailable [phone] Allergies Active Allergy Reactions Criticality Noted Date Comments Latex Rash Medium 10/31/2020 Medications levothyroxine (SYNTHROID) 150 mcg tablet Take 150 mcg by mouth meat hostess before breakfast Active gabapentin (NEURONTIN) 600 mg tablet Take 600 mg by mouth daily Active folic acid (FOLVITE) 1 mg tablet Take 1 mg by mouth daily Active lisinopril-hydr oCHLOROthiazide (ZESTORETIC) 20-25 mg per tabletIndicatio ns:hypertension Take 1 tablet by mouth daily Active methotrexate 2.5 mg tabletIndicatio ns:Rheumatoid Arthritis Take 25 mg by mouth every 7 days Active etanercept (ENBREL) 50 mg/mL (1 mL) injectionIndica tions:Rheumatoi d Arthritis Inject 50 mg under the skin once a week Takes on wednesdays Active leflunomide (ARAVA) 20 mg tabletIndicatio ns:Rheumatoid Arthritis Take 20 mg by mouth daily Active oxyCODONE (ROXICODONE) 5 mg immediate release tabletIndicatio ns:Pain Take 1 tablet (5 mg total) by mouth every 4 (four) hours as needed for pain 10 tablet Active Additional Information Patient not taking.Reported on 01/18/2021 oxybutynin (DITROPAN) 5 mg tabletIndicatio ns:Increased Urinary Frequency,Urina ry Urgency Take 1 tablet (5 mg total) by mouth 3 (three) times a day as needed (bladder spasm) 20 tablet Active Additional Information Patient not taking.Reported on 01/18/2021 phenazopyridine (Pyridium) 100 mg tablet Take 1 tablet (100 mg total) by mouth 3 (three) times a day as needed for urinary pain 20 tablet Active Additional Information Patient not taking.Reported on 01/18/2021 Active Problems Problem Noted Date Diagnosed Date Nephrolithiasis 10/30/2020 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 Thyroid activity decreased 04/12/2013 Surgical History Surgery Date Site/Laterality Comments TONSILECTOMY, ADENOIDECTOMY, BILATERAL MYRINGOTOMY AND TUBES CYSTOSCOPY INSERTION / REMOV AL STENT / STONE 04/10/2013 - 04/09/2014 VASECTOMY CARPAL TUNNEL RELEASE Bilateral Medical History Medical History Date Comments Arthritis Sleep apnea borderline; no c pap needed Hypertension Thyroid disease PONV (postoperative nausea and vomiting) Asthma Motion sickness Restless leg syndrome Rheumatoid arthritis (HCC) Kidney stone Family History Medical History Relation Name Comments Thyroid disease Mother Thyroid trou ble - (Added by TW Conv) Relation Name Status Comments Mother Social History Tobacco Use Types Packs/Day Years Used Date Smoking Tobacco: Former Cigarettes Smokeless Tobacco: Current Comments:quit 15 years ago AUDIT-C Answer Date Recorded Q1: How often do you have a drink containing alc ohol? Monthly or less 10/31/2020 Q2: How many drinks containi ng alcohol do you have on a typical day when you are drinking? 1 or 2 10/31/2020 Q3: How often do you have si x or more drinks on one occasion? Never 10/31/2020 Sex and Gender Information Value Date Recorded Sex Assigned at Not on file Legal Sex Male 4:34 AM PER DIEM REGISTERED NURSE Gender Identity Not on file Sexual Orientation Not on file Obstetrics History Last Filed Vital Signs Vital Sign Reading Time Taken Comments Blood Pressure 152/97 10/31/2020 1:10 PM CDT Pulse 98 10/31/2020 3:00 PM CDT Temperature 36.2 C (97.2 F) 10/31/2020 12:45 PM CDT Respiratory Rate 19 10/31/2020 1:10 PM CDT Oxygen Saturation 96% 10/31/2020 1:10 PM CDT Inhaled Oxygen Concentration - - Weight 103.4 kg (227 lb 14.4 oz) 2020 12:12 AM CDT Height 184.2 cm (6' 0.5) 02/28/2014 4:02 PM PER DIEM REGISTERED NURSE Body Mass Index 30.48 02/28/2014 4:02 PM PER DIEM REGISTERED NURSE Plan of Treatment Health Maintenance Due Date Last Done Comments Colon Cancer Screening-Colonoscopy 1970 Depression Screening 1970 Hepatitis C Screening 1970 Prostate Cancer Screening-PSA 1970 DTaP/Tdap/Td Vaccine (1 - Tdap) 1981 Hepatitis B Screening 1988 Regular Well Visit/Exam 18-64 1988 Pneumococcal vaccine <65 (1 of 2 - PCV) 1989 Zoster Vaccine (1 of 2) 1989 Covid-19 Vaccine (3 - Moderna risk series) 04/16/2021 03/19/2021, 02/15/2021 Influenza Vaccine (#1) 2024 Medical Devices Explanted Type Area Pile Header Device Identifier Shelf Expiration Date Model / Serial / Lot [employer] [id number] Universa 6fr 28cm Firm Positioner Monofilament Tether Stent - [id number] Implanted:Qty: 1 on 10/31/2020 by Elo Patel MD at [facility] Explanted:Qty: 1 on 11/09/2020 by Saundra Harry NP Left: Ure[employer] [id number] 06/11/2023 [id number] / / [id number] Insurance [facility] BLUE ACCESS [place] Advance [place]ives For more information, please contact: [phone] * Full Code (Latest Code Status on File) Date Activated Date Inactivated Comments 10/31/2020 12:11 AM 10/31/2020 8:15 PM Care Teams Silverware Cleaner Relationship Specialty Start Date End Date Unknown, Notinfile PCP - General 10/31/20 Lina Ritchie MD 10/30/20
== END 2024-12-23 16:23 | disposition home or self-care (01) ==
LOC: ANHLAB 16:24
PROVIDERS: PCP Family Medicine; Visit Provider Family Medicine
DX: R74.8 Abnormal levels of other serum enzymes (principal); R73.03 Prediabetes; E03.9 Hypothyroidism, unspecified; M05.9 Rheumatoid arthritis with rheumatoid factor, unspecified; I10 Essential (primary) hypertension
CPT/HCPCS: 36415; 80053; 80074

== ENCOUNTER 2025-02-03 15:46 | Outpatient (CLI) | payer BC, SELFPAY ==
[2025-02-03 16:34] LABS: Hematocrit 45.7 % (42.0-52.0); Hemoglobin 15.4 g/dL (14.0-18.0); Immature Granulocyte Percent A 0.8 % (0-0.5); Lymphocytes Absolute Auto 3.47 K/mm3 (0.9-3.2); Mean Corpuscular HGB Conc 33.7 g/dl (32-36); Mean Corpuscular Hemoglobin 32.4 pg (26-34); Mean Corpuscular Volume 96.0 fl (80-100); Nucleated Red Blood Cells Absolute Auto 0.000 K/mm3 (0.0-0.012); Nucleated Red Blood Cells Perc 0.0 % (0.0-0.2); Platelet Count Result 266 k/mm3 (150-375); Red Blood Count 4.76 M/mm3 (4.6-6.20); White Blood Count 12.5 K/mm3 (4.5-10.0)
[2025-02-03 16:52] LABS: Alanine Aminotransferase 47 U/L (6-50); Albumin Level 4.4 g/dL (3.5-5.1); Alkaline Phosphatase 99 U/L (38-126); Anion Gap 9 mmol/L (4-12); Aspartate Amino Transferase 35 U/L (17-59); Bilirubin,Total 0.6 mg/dL (0.2-1.3); Blood Urea Nitrogen 14 mg/dL (9-20); Calcium 9.2 mg/dL (8.4-10.2); Carbon Dioxide 27 mmol/L (22-30); Chloride 100 mmol/L (98-107); Creatine Kinase 87 U/L (55-170); Estimated Glomerular Filt Rate > 60; Glucose 92 mg/dL (65-110); Potassium 4.1 mmol/L (3.4-5.0); Sodium 136 mmol/L (137-145); Total Protein 7.3 g/dL (6.3-8.2)
[2025-02-03 17:00] LABS: INR 1.0; Prothrombin Time 13.6 Seconds (11.1-14.7)
[2025-02-03 17:02] LABS: Immunoglobulin G 832 mg/dL (700-1600)
[2025-02-03 17:03] LABS: Iron 89 ug/dL (49-181)
[2025-02-03 17:13] LABS: Percent Iron Saturation 34 % (20-50)
[2025-02-03 17:40] LABS: Ferritin 74.70 ng/mL (11.1-264)
[2025-02-04 07:09] LABS: GGT 17 IU/L (0-65)
[2025-02-04 07:09] LABS: Hep A Ab, Total Negative (Negative)
[2025-02-07 07:09] LABS: ANA by IFA Rfx Titer/Pattern Positive (.); ANA by IFA Rfx YES YES
[2025-03-10 15:42] LABS: Hep B Core Ab, Total Negative
== END 2025-02-03 15:47 | disposition home or self-care (01) ==
LOC: ANHLAB 15:47
PROVIDERS: PCP Family Medicine; Visit Provider Nurse Practitioner
DX: R74.8 Abnormal levels of other serum enzymes (principal)
CPT/HCPCS: 36415; 80048; 80076; 82103; 82550; 82728; 82784; 82977; 83540; 83550; 85025; 85610; 86015; 86038; 86364; 86376; 86381; 86704; 86708